=== PATIENT | female | born 1985 | race African-American/Black ===

== ENCOUNTER 2018-03-11 14:49 | Emergency (ER) | payer OTHER ==
[~2018-03-11] VITALS: Ht 160 cm; Wt 47.6 kg
--- NOTE | ~2018-03-11 | EKG ---
[address] [employer] 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
[~2018-03-11 14:49] MED LIST: CIPROFLOXACIN500 M1 PO; NOHOMEMEDICATIONS
[2018-03-11 14:54] VITALS: BP 101/59
[2018-03-11] MEDS ORDERED: TOPROL XL25 MG PO (14:58)
[2018-03-11] MEDS ORDERED: CELEXA20 MG PO (14:59)
[2018-03-11 15:38] LABS: ABSOLUTE NEUTROPHILS 12.5 thou/uL (1.4-8.2); BASOPHILS 0.4 % (0.0-2.0); EOSINOPHILS 1.3 % (0.0-3.0); HEMATOCRIT 35.2 % (37.0-47.0); HEMOGLOBIN 11.9 gm/dL (12.0-15.0); MCH 30.7 pg (26.0-34.0); MCHC 33.8 g/dL (28.0-37.0); MCV 90.8 fL (80.0-100.0); MONOCYTES 1.2 % (1.0-8.0); PLATELET COUNT 296 thou/uL (150-400); POLYS 94.1 % (36.0-66.0); RBC 3.88 mil/uL (4.20-5.00); RDW 14.5 % (10.5-14.5); WBC 13.3 thou/uL (4.0-11.0)
[2018-03-11 15:46] LABS: CALCIUM 9.4 mg/dL (8.5-10.1); CREATININE 0.8 mg/dL (0.6-1.0); POTASSIUM 4.4 mmol/L (3.5-5.1)
[2018-03-11 16:12] LABS: URINE BILIRUBIN NEGATIVE (Negative); URINE BLOOD NEGATIVE (Negative); URINE CLARITY CLEAR; URINE COLOR YELLOW; URINE GLUCOSE-RANDOM* NEGATIVE (Negative); URINE KETONES NEGATIVE (Negative); URINE LEUKOCYTES-REFLEX NEGATIVE (Negative); URINE NITRITE-REFLEX NEGATIVE (Negative); URINE PROTEIN (DIPSTICK) NEGATIVE (Negative); URINE UROBILINOGEN 0.2 E.U./dl (0.2-1.0)
[2018-03-11] MEDS ORDERED: MEDROLDOSEPACK PO (17:28)
[2018-03-11] MEDS ORDERED: VISTARIL50 MG PO (17:31)
== END 2018-03-11 18:01 | disposition home or self-care (01) ==
LOC: ER 14:49
PROVIDERS: Nurse Practitioner Family
DX: L29.9 Pruritus, unspecified (principal); R55 Syncope and collapse

== ENCOUNTER 2019-10-23 15:33 | Emergency (ER) | payer OTHER ==
[~2019-10-23] VITALS: Ht 170.2 cm; Wt 90.7 kg
[~2019-10-23 15:33] MED LIST changes: +CELEXA20 MG PO; +MEDROLDOSEPACK PO; +TOPROL XL25 MG PO; +VISTARIL50 MG PO
[2019-10-23] MEDS ORDERED: NAPROSYN500 MG PO (17:08)
[2019-10-23 17:29] VITALS: BP 128/88
--- NOTE | 2019-10-24 08:22 | EKG ---
[facility] [place] [address] [place] [address] ELECTROCARDIOGRAM REPORT Name: HEAVENLY MAYES Room #: DEP [facility]#: [id number] Admission: 10/23/19 Attend Phys: Discharge: 10/23/19 Date of : 81 Report #: [id number] THIS REPORT FOR: cc: Simi Salinas MD, Margaret A. MD Couchonnal, Luis F. MD ~ THIS REPORT FOR: //name// 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
== END 2019-10-23 17:30 | disposition home or self-care (01) ==
LOC: ER 15:33
DX: S83.91XA Sprain of unspecified site of right knee, initial encounter (principal); Z79.899 Other long term (current) drug therapy; Z88.8 Allergy status to other drugs, medicaments and biological substances; W22.8XXA Striking against or struck by other objects, initial encounter; Y93.89 Activity, other specified; Y92.89 Other specified places as the place of occurrence of the external cause; Y99.8 Other external cause status